=== PATIENT | female | born 1975 | race Caucasian/White ===

== ENCOUNTER 2023-11-10 05:13 | Day surgery (SDC) | payer OTHER ==
[2023-11-07 08:17] VITALS: BMI 31.7
[2023-11-10 08:35] VITALS: TEMP 98
[2023-11-10 08:53] VITALS: RESP 18
[2023-11-10 08:57] VITALS: BP 104/68; PULSE 76
== END 2023-11-10 09:15 | disposition home or self-care (01) ==
LOC: JASU-ENDO 05:13
PROVIDERS: ATTEND Internal Medicine Gastroenterology
PROC: 0DJD8ZZ Inspection of Lower Intestinal Tract, Via Natural or Artificial Opening Endoscopic (ICD-10-PCS; principal; 2023-11-10 08:00)
DX: Z12.11 Encounter for screening for malignant neoplasm of colon (principal); K64.8 Other hemorrhoids
CPT/HCPCS: 81025